=== PATIENT | male | born 1975 | race Caucasian/White ===

== ENCOUNTER 2022-04-04 06:54 | Emergency (ER) | payer OTHER, SELFPAY ==
--- NOTE | 2022-04-04 07:00 | PC.NURSE ---
JEYSON Rodriguez at
[2022-04-04 07:03] VITALS: BP 130/88; PULSE 76; O2SAT 96
--- NOTE | 2022-04-04 07:10 | PC.NURSE ---
Jennifer BENÍTEZ cleaned up wound @ [id number]
[2022-04-04 07:14] VITALS: BP 130/88; PULSE 77; RESP 17; TEMP 36.8; O2SAT 95; BMI 32.2
--- NOTE | 2022-04-04 07:19 | PC.NURSE ---
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 registration notified to call back when he arrives.
--- NOTE | 2022-04-04 07:19 | PC.NURSE ---
MARITA SANTIAGO at suturing
--- NOTE | 2022-04-04 07:27 | PC.NURSE ---
Dr. Simpson at for procedure
--- NOTE | 2022-04-04 07:39 | [facility].EDWNDL ---
ED Disposition Clinical Impression: Laceration of forearm Qualifiers: Encounter type: initial encounter Laterality: right Qualified Code(s): S51.811A - Laceration without foreign body of right forearm, initial encounter Disposition: Home, Self-Care Condition on Discharge: Good Instructions: DI for Laceration Repair Additional Instructions: suture out 10-12 days - - Critical Care Critical Care Time: No Attestation: On , the high probability of a clinically significant, sudden or life threatening deterioration of the following system(s) required my full and direct attention, intervention and personal management. The time I documented below is in addition to time spent performing reported procedures but includes the following listed in this critical care notation. Medical Decision Making - Medical Records Medical records reviewed: Yes: I reviewed the patient's medical records. - Esequiel Inquiry Pt receiving controlled substance: No Vital Signs: 04/04/22 07:03 04/04/22 07:14 Temperature 98.2 F Temperature Source Oral Pulse Rate 76 Pulse Rate [Left Radial] 77 Respiratory Rate 17 Blood Pressure 130/88 Blood Pressure [Right Arm] 130/88 Blood Pressure Mean 102 Blood Pressure Mean [Right Arm] 102 02 Sat by Pulse Oximetry 96 95 Oxygen Delivery Method Room Air - Lab Data Lab results reviewed: Yes: I reviewed the patient's lab results. Orders (Tests/Meds): ED MEDICATIONS Discontinued Medications Generic Name Dose Route Start Last Admin Trade Name Frejose PRN Reason Stop Dose Admin Lidocaine HCl 20 ml 04/04/22 07:20 Lidocaine 2% 20ml Vial IJ 04/04/22 07:21 ONCE ONE Tetanus/Reduced Diphtheria/Acell Pertussis 0.5 ml 04/04/22 07:20 Tet/Diphth/Pert-Adult 0.5ml Syringe IM 04/04/22 07:21 .ONCE ONE Wound/Laceration HPI - General Chief Complaint: Wound/Laceration Stated Complaint: WC 04/04/22 06:00 Laceration Right Arm Time Seen by Provider: 04/04/22 07:10 Mode of Arrival: Ambulatory Source of Information: Patient, Medical Record Limitations: No Limitations Description of Symptoms (Recalled from ER Triage Doc. by RN): pt to ed c/o laceration to the right arm. pt states he was working and cut his arm on a wire sticking out of a box. pt states it is a workmans comp visit. - History of Present Illness HPI narrative: lac rt upper ext at work on piece of metal Onset (ago): hour(s) Extremity Location: Right: forearm Place: work Patient tetanus UTD: No Context: accidental Associated symptoms: none - Related Data Allergies Allergy/AdvReac Type Severity Reaction Status Date / Time No Known Allergies Allergy Verified 04/04/22 07:20 [facility] History - Hepatitis A Screen Attestation statement:: This patient has been screened for Hepatitis A risk factors. I have reviewed the patient's past medical history: Yes ROS Obtained: Yes All systems reviewed & no additional complaints - Constitutional Constitutional: Denies fever(s) - Eyes Eyes: Denies change in vision - Cardiovascular Cardiovascular: Denies chest pain - Respiratory Respiratory: Denies dyspnea - Gastrointestinal Gastrointestingal: Denies: vomiting - Genitourinary Male Genitourinary: Denies hematuria - Musculoskeletal Musculoskeletal: Denies joint pain - Integumentary/Breasts Skin/Breast: Reports as per HPI, Denies rash, Reports other (3 cm lac rt forearm ) - Neurologic Neurologic: Denies seizure-like activity Physical Exam - General General appearance: alert - Head Head exam: normocephalic - Eye Eye exam: Present: PERRL, EOMI - ENT ENT exam: Present: mucous membranes moist - Neck Neck exam: Present: trachea midline - Respiratory Respiratory exam: Absent: respiratory distress - Cardiovascular Cardiovascular exam: Present: regular rate - Abdominal Exam Abdominal exam: Present: soft - Extremities Exam Extremities exam: Present: full ROM - Neurologi
--- NOTE | 2022-04-04 07:51 | PC.NURSE ---
Dry dressing applied to would on right arm -dry gauze -tegaderm -coban to keep clean/dry Pt was instructed to keep area clean and dry until it is time to get sutures removed.
[2022-04-04 07:57] VITALS: BP 128/84; PULSE 74; RESP 18; TEMP 36.8; O2SAT 96
== END 2022-04-04 07:58 | disposition home or self-care (01) ==
LOC: ER 07:56
PROVIDERS: Emergency Provider Emergency Medicine
DX: S51.811A Laceration without foreign body of right forearm, initial encounter (principal); W45.8XXA Other foreign body or object entering through skin, initial encounter
CPT/HCPCS: 12002; 90471; 90715; 99284